=== PATIENT | female | born 2000 | race Two or more races ===

== ENCOUNTER 2022-01-20 20:31 | Emergency (ER) | payer MEDICARE, SELFPAY ==
[2022-01-20 20:59] VITALS: BP 128/66; PULSE 86; RESP 18; TEMP 36.4; O2SAT 99; BMI 28.7
[2022-01-20 21:09] LABS: Appearance Urine CLEAR; Color Urine YELLOW; Glucose Urine UA NEG (NEG); Leukocyte Esterase Urine NEG (NEG); Nitrite Urine NEG (NEG); Specific Gravity - Urine 1.015 (1.005-1.025); UACC Culture Trigger NO; Urine Blood 2+ (NEG); Urine Ketones NEG (NEG); Urine Protein TRACE MG/DL (NEG-TRACE)
[2022-01-20 21:10] LABS: UPreg QC Valid YES; Urine Pregnancy NEGATIVE (NEGATIVE)
[2022-01-20 21:16] LABS: WBC Urine 0 /HPF (0-4)
[2022-01-20 21:17] LABS: Amorphous Sediment Urine 1+ /LPF; Bacteria Urine TRACE /LPF; Squamous Epithelial Cell Urine 2+ /LPF
--- NOTE | 2022-01-20 22:02 | PC.NURSE ---
at bedside for primary eval.
--- NOTE | 2022-01-20 22:06 | ED.GENADULT ---
HPI - General Adult General Chief complaint: General Medical Stated complaint: stomach pain Time Seen by Provider: 01/20/22 22:01 Source: patient Mode of arrival: ambulatory Limitations: no limitations History of Present Illness HPI narrative: Patient comes to the emergency room complaining of mild abdominal cramping for couple of days. Patient states that she is to find out if she is or not. Earlier today, when patient was in triage, patient was called for blood work for the abdominal lab protocol. Patient declined. Patient denies nausea vomiting or diarrhea, no fever chills, no URI or UTI symptoms Related Data Allergies Allergy/AdvReac Type Severity Reaction Status Date / Time No Known Allergies Allergy Verified 01/20/22 21:01 Review of Systems Review of Systems: Constitutional : No Weight loss, No Fever, No Chills, No Night Sweats, No Fatigue, No Malaise ENT/Mouth : No Hearing loss, No Ear Pain, No Nasal Congestion, No Sinus Pain, No Hoarseness, No sore throat, No Rhinorrhea, No Swallowing Difficulty Eyes: No Eye Pain, No Swelling, No Redness, No Foreign Body, No Discharge, No Vision Changes Cardiovascular : No Chest Pain, No SOB, No Dyspnea on Exertion, No Orthopnea, No Edema, No Palpitations Respiratory : No Cough, No Sputum, No Wheezing, No Smoke Exposure, No Dyspnea Gastrointestinal : No Nausea, No Vomiting, No Diarrhea, No Constipation, mild abdominal cramping, no discomfort at this time, No Hematochezia, No Melena Genitourinary : no irregular bleeding, No Dysuria, No Urinary Frequency, No Hematuria, No Urinary Incontinence, No Urgency, No Flank Pain, No Urinary Flow Changes, No Hesitancy Musculoskeletal : No joint pain, No Myalgias, No Joint Swelling Skin : No Skin Lesions, No rash Neuro : No Weakness, No Numbness, No Paresthesias, No Loss of Consciousness, No Dizziness, No Headache Psych : No Anxiety/Panic, No Depression, No SI/HI/AH/VH, No Social Issues, Heme/Lymph: No Bruising, No Bleeding,No Lymphadenopathy Endocrine : No Polyuria, No Polydipsia, No Temperature Intolerance Physical Exam ED Vital Signs: Vital Signs - 24 hr 01/20/22 20:59 Temperature 97.6 F Pulse Rate 86 Respiratory Rate 18 Blood Pressure 128/66 Pulse Oximetry 99 BMI result Body Mass Index 28.7 Const Other: Appearance: Alert. Oriented X3. No acute distress. Well-appearing Eyes: Pupils equal, round and reactive to light. ENT: Pharynx normal. Neck: Normal inspection. Neck supple. No lymph nodes noted. No crepitus CVS: Normal heart rate and rhythm. Pulses normal. Normal S1 and S2 Respiratory: No respiratory distress. Breath sounds normal. No Wheezing. No rales Abdomen: Soft and nontender. No rigidity. No distention. No guarding wound Skin: Skin warm and dry. Normal skin color. Normal skin turgor. Extremities: No lower extremity edema. No Lacerations. No Rash Neuro: Oriented X 3. No motor deficit. No sensory deficit. Moving all extremities. No slurred speech. CN 2 through 12 grossly intact Psych: calm, cooperative, normal affect Course Course Course Narrative: I discussed with the patient that she has small amount of blood in the urine, patient is likely starting to menstruate now. test negative. As mentioned above, patient declined blood work. Medical Decision Making Lab Data Labs: Lab Results 01/20/22 01/20/22 Range/Units 20:55 20:55 Urine Color YELLOW Urine Appearance CLEAR Urine pH 8.0 (5.0-8.0) Ur Specific [place] 1.015 (1.005-1.025) Urine Protein TRACE (NEG-TRACE) MG/DL Urine Glucose (UA) NEG (NEG) MG/DL Urine Ketones NEG (NEG) MG/DL Urine Blood 2+ H (NEG) Urine Nitrite NEG (NEG) Ur Leukocyte Esterase NEG (NEG) Urine RBC 10-14 H (0) /HPF Urine WBC 0 (0-4) /HPF Ur Squamous Epith Cells 2+ /LPF Amorphous Sediment 1+ /LPF Urine Bacteria TRACE /LPF Urine Test NEGATIVE (NEGATIVE) Discharge Plan Discharge Clinical Impression: Abdominal cramping Patient Disposition: Home, Self-Care Instructions: Abdominal Pain (ED) Additional Instructions: Please follow-up with your primary care physician tomorrow. If you have any worsening or new symptoms, please return to the emergency room or call 911
--- NOTE | 2022-01-20 22:13 | PC.NURSE ---
Pt requesting blood work to r/o . agreeable. Pt and asking how long for results, pt and unable to wait 1-2 hours for results. Pt and requesting DC paperwork.
== END 2022-01-20 22:15 | disposition home or self-care (01) ==
LOC: HO.ED 22:13
PROVIDERS: Emergency Provider Emergency Medicine
DX: R10.9 Unspecified abdominal pain (principal)
CPT/HCPCS: 81001; 81025; 99282; 99283

== ENCOUNTER 2022-01-27 16:36 | Emergency (ER) | payer MEDICARE, SELFPAY ==
--- NOTE | ~2022-01-27 | CT_ITS ---
EXAMINATION: CT abdomen pelvis w con CLINICAL INFORMATION: Reason for Exam abd pain COMPARISON: No prior CT available for comparison. TECHNIQUE: Multidetector volumetric imaging was performed from the superior aspect of the liver through the pubic symphysis 85 mL of Omnipaque 350 injected. Sagittal and coronal reformatted images were obtained on the technologist's workstation. This CT examination was performed using dose optimization techniques as appropriate, variously including the following: *Automated exposure control *Adjustment of mA and/or kV according to patient size (this includes techniques or standardized protocols for targeted exams where dose is matched to indication/reason for exam; i.e. extremities or head) *Use of iterative reconstruction technique DLP: 1671 mGy-cm FINDINGS: LOWER THORAX: Included lung bases are clear. HEPATOBILIARY: No focal hepatic lesions. No biliary ductal dilatation. GALLBLADDER: Gallbladder unremarkable. SPLEEN: Spleen is normal in size. PANCREAS: No focal mass or ductal dilatation. STOMACH AND GASTROINTESTINAL TRACT: Stomach is grossly unremarkable. There is no bowel distention or thickening. Appendix not directly visualized probably obscured by crowding of bowel loops, no CT evidence of inflammation or dilated of blind loop around the cecum to suggest appendicitis. ADRENALS: No adrenal nodules. KIDNEYS/URETERS: No hydronephrosis, stones or solid mass lesions. URINARY BLADDER: Partially decompressed. PELVIC VISCERA: Unremarkable PERITONEUM: No free air or fluid. LYMPH NODES: No lymphadenopathy. VASCULAR:Abdominal aorta normal in size, no aneurysm found. BONES, ABDOMINAL WALL AND SOFT TISSUES: Age-appropriate changes of the spine and skeletal system, no destructive osteolytic or osteosclerotic bone lesion found CT/CT abdomen pelvis w con IMPRESSION: *No CT evidence of acute intra-abdominal process to explain patient's pain symptoms. No CT evidence of appendicitis, no kidney stone or hydronephrosis. No free air or fluid.
[2022-01-27 16:40] VITALS: BP 140/73; PULSE 92; RESP 19; TEMP 36.6; O2SAT 98; BMI 28.1
--- NOTE | 2022-01-27 17:09 | ED.ABDPAIN ---
HPI - Abdominal Pain General Chief Complaint: Abdominal Pain Stated Complaint: severe abd pain Time Seen by Provider: 01/27/22 17:06 History of Present Illness HPI narrative: Patient is a 21-year-old female presents today with having lower abdominal pain about 2 weeks. Denies any fever chills. No pain on urination. Patient had not had a Menstruation for 2 months. No coughing or congestion or upper respiratory symptoms. No diaphoresis. Complaining the pain is constant. It is not associated with nausea vomiting or diarrhea. There is nose discharge from the vaginal area. Patient also has pain in the lower back. Patient denies any trauma. Denies any fever chills. Immunized for COVID. No systemic complaints. Related Data Allergies Allergy/AdvReac Type Severity Reaction Status Date / Time No Known Allergies Allergy Verified 01/20/22 21:01 Review of Systems Review of Systems No fever no chills no chest pain or shortness of breath no nausea no vomiting Yes all other systems are reviewed and are negative [facility] Past Medical History Attestation statement: The following information was validated with the patient. Social History Social History Patient Tobacco Use Status: Never used Tobacco Use of substances other than those prescribed or required for medical reasons: No Advance Directives: No Advance Directives Information Provided: No Physical Exam ED Vital Signs: Vital Signs - 24 hr 01/27/22 16:40 01/27/22 18:31 Temperature 98 F 98.2 F Pulse Rate 92 75 Respiratory Rate 19 18 Blood Pressure 140/73 H 115/96 H Pulse Oximetry 98 98 BMI result Body Mass Index 28.1 Appearance: Alert. Oriented X3. No acute distress. Eyes: Pupils equal, round and reactive to light. ENT: Pharynx normal. Neck: Normal inspection. Neck supple. No lymph nodes noted. No crepitus CVS: Normal heart rate and rhythm. Pulses normal. Normal S1 and S2 Respiratory: No respiratory distress. Breath sounds normal. No Wheezing. No rales Abdomen: Soft and nontender. No rigidity. No distention. good BS x4 Skin: Skin warm and dry. Normal skin color. Normal skin turgor. Extremities: No lower extremity edema. Neurovascular intact to all extremities. No Lacerations. No Rash Neuro: Oriented X 3. No motor deficit. No sensory deficit. Moving all extermities. No slurred speech MDM - Abdominal Pain MDM Narrative Medical decision making narrative: White count is normal. Patient's electrolytes unremarkable. test is negative no evidence for ectopic. CT scan of the abdomen pelvis showed no evidence of appendicitis. Patient has 1 sexual partner. No vaginal discharge. GC chlamydia was sent. Will have patient follow-up on an outpatient basis. In stable condition. Will discharge home. Urine showed no signs of infection Medical Records Attestation: I reviewed the patient's medical records. Lab Data Attestation: I reviewed the patient's lab results. Result diagrams: 01/27/22 17:34 01/27/22 17:34 Labs: Lab Results 01/27/22 01/27/22 01/27/22 Range/Units 17:34 17:34 17:34 WBC 8.8 (4.8-10.8) X10*3/uL RBC 5.22 (4.20-5.50) X10*6/uL Hgb 13.6 (12.0-16.0) g/dl Hct 42.0 (37.0-47.0) % MCV 80.5 (80.0-98.0) fL MCH 26.1 L (27.0-33.0) pg MCHC 32.4 (31.0-35.0) g/dl RDW 13.6 (11.0-16.0) % Plt Count 367 (160-400) X10*3/uL MPV 9.5 (9.4-12.3) fL Immature Gran % (Auto) 0.3 (0.0-0.4) % Neut % (Auto) 62.7 (45-73) % Lymph % (Auto) 27.8 (20-40) % [place] % (Auto) 6.8 (2-11) % Eos % (Auto) 1.5 (0-4) % Baso % (Auto) 0.9 (0-2) % Lymph # (Auto) 2.4 (1.2-4.9) X10*3/uL [place] # (Auto) 0.6 (0.1-1.2) X10*3/uL Eos # (Auto) 0.1 (0.0-0.4) X10*3/uL Baso # (Auto) 0.1 (0.0-0.2) X10*3/uL Abs Immat Gran (auto) 0.03 (0.00-0.03) X10*3/uL Absolute Neuts (auto) 5.5 (2.0-8.3) x10*3/uL Absolute Nucleated RBC 0.000 (0.0-0.012) X10*3/uL Nucleated RBC % (auto) 0.0 (0.0-0.2) /100WBC Sodium 138 (135-145) mmol/L Potassium 4.3 (3.3-5.1) mmol/L Chloride 105 (96-108) mmol/L Carbon Dioxide 25 (22-29) mmol/L Anion Gap 12 (12-20) BUN 11 (9-16) mg/dL Creatinine 0.76 (0.5-1.4) mg/dL Estim Creat Clear Calc 131.8 Estimated GFR > 60 Random Glucose 90 (60-115) mg/dL Calcium 9.4 (8.4-10.2) mg/dL Total Bilirubin < 0.2 (0.0-1.0) mg/dL Direct Bilirubin < 0.2 (0.0-0.5) mg/dL AST 14 (5-31) U/L ALT 11 (0-31) U/L Alkaline Phosphatase 78 (39-117) U/L Total Protein 7.6 (6.5-8.0) g/dL Albumin 4.0 (3.5-5.0) g/dL Lipase 24 (8-78) U/L Beta HCG, Quant < 2 mIU/mL Urine Color YELLOW Urine Appearance CLEAR Urine pH 7.5 (5.0-8.0) Ur Specific [place] 1.010 (1.005-1.025) Urine Protein NEG (NEG-TRACE) MG/DL Urine Glucose (UA) NEG (NEG) MG/DL Urine Ketones NEG (NEG) MG/DL Urine Blood NEG (NEG) Urine Nitrite NEG (NEG) Ur Leukocyte Esterase 1+ H (NEG) Urine RBC 0-2 (0) /HPF Urine WBC 0-2 (0-4) /HPF Ur Squamous Epith Cells 1+ /LPF Urine Bacteria TRACE /LPF Discharge Plan Discharge Clinical Impression: Abdominal pain Patient Disposition: Home, Self-Care Instructions: Abdominal Pain (ED) Referrals: [facility] [Physician] - Print Language: Amharic
[2022-01-27 17:40] LABS: MANUAL DIFF FLAG NO
[2022-01-27 17:48] LABS: Basophils Absolute Auto 0.1 X10*3/uL (0.0-0.2); Basophils Percent Auto 0.9 % (0-2); Eosinophils Absolute Auto 0.1 X10*3/uL (0.0-0.4); Eosinophils Percent Auto 1.5 % (0-4); Hemoglobin 13.6 g/dl (12.0-16.0); Imm Gran Abs Auto 0.03 X10*3/uL (0.00-0.03); Imm Gran Pct Auto 0.3 % (0.0-0.4); Lymphocytes Absolute Auto 2.4 X10*3/uL (1.2-4.9); Lymphocytes Percent Auto 27.8 % (20-40); Mean Corpuscular HGB Conc 32.4 g/dl (31.0-35.0); Mean Corpuscular Hemoglobin 26.1 pg (27.0-33.0); Mean Corpuscular Volume 80.5 fL (80.0-98.0); Mean Platelet Volume 9.5 fL (9.4-12.3); Monocytes Absolute Auto 0.6 X10*3/uL (0.1-1.2); Monocytes Percent Auto 6.8 % (2-11); Neutrophils Absolute Auto 5.5 x10*3/uL (2.0-8.3); Neutrophils Percent Auto 62.7 % (45-73); Platelet Count 367 X10*3/uL (160-400); Red Blood Count 5.22 X10*6/uL (4.20-5.50); Red Cell Distribution Width 13.6 % (11.0-16.0); White Blood Count 8.8 X10*3/uL (4.8-10.8)
[2022-01-27 17:54] LABS: Appearance Urine CLEAR; Color Urine YELLOW; Glucose Urine UA NEG (NEG); Leukocyte Esterase Urine 1+ (NEG); Nitrite Urine NEG (NEG); PH 7.5 (5.0-8.0); UACC Culture Trigger YES; Urine Blood NEG (NEG); Urine Ketones NEG (NEG); Urine Protein NEG (NEG-TRACE)
[2022-01-27 18:12] LABS: Bacteria Urine TRACE /LPF; RBC Urine 0-2 /HPF (0); Squamous Epithelial Cell Urine 1+ /LPF; UACC CULT YES; WBC Urine 0-2 /HPF (0-4)
[2022-01-27 18:14] LABS: HCG Quantitative < 2 mIU/mL
[2022-01-27 18:17] LABS: Alanine Aminotransferase 11 U/L (0-31); Alkaline Phosphatase 78 U/L (39-117); Anion Gap 12 (12-20); Aspartate Amino Transferase 14 U/L (5-31); Bilirubin Direct < 0.2 mg/dL (0.0-0.5); Bilirubin Total < 0.2 mg/dL (0.0-1.0); Blood Urea Nitrogen 11 mg/dL (9-16); Calcium 9.4 mg/dL (8.4-10.2); Carbon Dioxide 25 mmol/L (22-29); Chloride 105 mmol/L (96-108); Creatinine Clr Calc Pharmacy 131.8; Estimated Glomerular Filt Rate > 60; Glucose Random 90 mg/dL (60-115); Lipase 24 U/L (8-78); Potassium 4.3 mmol/L (3.3-5.1); Sodium 138 mmol/L (135-145); Total Protein 7.6 g/dL (6.5-8.0)
[2022-01-27 18:31] VITALS: BP 115/96; PULSE 75; RESP 18; TEMP 36.8; O2SAT 98
[2022-01-27] MEDS: iohexoL 350 MG/ML 100 ML INFUS..BTL IV (19:29)
[2022-01-28 05:34] LABS: CT PCR NOT DETECTED (Not Detect.); NG PCR NOT DETECTED (Not Detect.)
== END 2022-01-27 21:13 | disposition home or self-care (01) ==
PROVIDERS: Emergency Provider Emergency Medicine Emergency Medical Services
DX: N39.0 Urinary tract infection, site not specified (principal); R10.30 Lower abdominal pain, unspecified; Z79.899 Other long term (current) drug therapy
CPT/HCPCS: 36415; 74177; 80048; 80076; 81001; 83690; 84702; 85025; 87086; 87147; 87491; 87591; 99284; Q9967

== ENCOUNTER 2022-06-10 15:30 | Emergency (ER) | payer MEDICARE, SELFPAY ==
[2022-06-10 15:59] VITALS: BP 119/64; PULSE 98; RESP 18; TEMP 37.2; O2SAT 100; BMI 32.3
[2022-06-10 16:36] LABS: COVID-19 Test Negative (Negative); IDNOW Serial# 55D5AD1C
[2022-06-10 16:37] LABS: Strep A Nucleic Acid Negative (Negative)
--- NOTE | 2022-06-10 18:18 | ED.URI ---
HPI - URI/Sore Throat General Chief Complaint: Upper Respiratory Symptoms Stated Complaint: Fever, sore throat, coughing Time Seen by Provider: 06/10/22 18:07 Source: patient and family Mode of arrival: ambulatory Limitations: no limitations History of Present Illness HPI Narrative: 21-year-old female who is 12.5 weeks presents to the ER for evaluation of dry cough, sore throat, body aches and subjective fevers that started yesterday. Her 2-1/2-year-old son is here with similar complaints. They were seen at [facility] yesterday for the same, unclear what tests were performed there. The patient is not sure which medication she can take because she is . She denies any lower abdominal cramping or vaginal bleeding. She reports feeling hot and cold the last couple of days but has not taken her temperature at home. She has a dry cough that is worse at night. She also has a sore throat, worse with swallowing. She has been able to eat and drink normally. She denies any nausea or vomiting. No abdominal pain, chest pain, shortness of breath. MD elicited complaint: fever, cough, sore throat and nasal congestion Onset (ago): day(s) (2) Consistency: constant Severity: moderate Description of mucous: clear and watery Able to tolerate fluids by mouth: Yes Exacerbating factors: supine positioning Relieving factors: nothing Context: sick contacts Associated symptoms: fever, chills, myalgias, headache, rhinorrhea, nasal congestion, sore throat and cough Treatments prior to arrival: none Related Data Previous Rx's Medication Instructions Recorded cefuroxime axetil 250 mg tablet 250 mg PO BID 7 days #14 tabs 01/31/22 acetaminophen 500 mg tablet 1,000 mg PO Q6H PRN fever or pain 06/10/22 #30 tabs Allergies Allergy/AdvReac Type Severity Reaction Status Date / Time No Known Allergies Allergy Verified 06/10/22 15:49 Review of Systems Review of Systems: Constitutional: + Fever, + Chills ENT/Mouth: + sore throat, + Rhinorrhea, + Swallowing Difficulty Eyes: No Eye Pain, No Swelling, No Redness Cardiovascular: No Chest Pain, No SOB, No Orthopnea, No Edema Respiratory: + Cough, No Sputum, No Wheezing, No dyspnea Gastrointestinal: No Nausea, No Vomiting, No Diarrhea, No abdominal Pain Genitourinary: No Dysuria, No Urinary Frequency, No Hematuria, No vaginal bleeding Musculoskeletal: No joint pain, + Myalgias Skin: No Skin Lesions, No rash Neuro: No Weakness, No Numbness, No Dizziness, + Headache Psych: + Anxiety/Panic, No Depression Heme/Lymph: No Bruising, No Lymphadenopathy Endocrine: No Polyuria, No Polydipsia PMFSH Social History Social History Patient Tobacco Use Status: Never used Tobacco Advance Directives: No Advance Directives Information Provided: Yes Physical Exam Vital Signs: Vital Signs: Last Vital Signs Temp 98.9 F 06/10/22 15:59 Pulse 98 06/10/22 15:59 Resp 18 06/10/22 15:59 BP 119/64 06/10/22 15:59 Pulse Ox 100 06/10/22 15:59 O2 Del Method 06/10/22 15:59 BMI result Body Mass Index 32.3 Appearance: Alert. Oriented X3. No acute distress. Eyes: Pupils equal, round and reactive to light. ENT: Pharynx normal. No tonsillar swelling or exudate. Uvula midline. Normal voice Neck: Normal inspection. Neck supple. Normal CVS: Normal heart rate and rhythm. Pulses normal. Respiratory: No respiratory distress. Breath sounds normal. Abdomen: Soft and nontender. +BS x4. Pelvic deferred Skin: Skin warm and dry. Normal skin color. Normal skin turgor. No rashes. Extremities: No lower extremity edema. Neuro: Oriented X 3. Nonfocal Course Course Course Narrative: 21-year-old female who is 12 and half weeks presents to the ER for evaluation of URI symptoms that started yesterday including sore throat, dry cough, subjective fevers. She is tolerating normal p.o.. On arrival to the ER her vital signs within normal limits. Her physical exam is unremarkable. She is negative for COVID and strep throat. Her sons viral PCR was negative. Symptoms are most likely due to viral URI. She is stable for discharge home with p.r.n. Tylenol. [id number] Chloraseptic spray and septic all lozenges or safe for use in . This was discussed with the patient and her . She is stable for discharge home with outpatient follow-up with her PCP and OBGYN as needed. Return precautions were discussed. Stable for DC. MDM - URI/Sore Throat Lab Data Labs: Lab Results 06/10/22 06/10/22 Range/Units 16:09 16:09 COVID-19 (MELISA) Negative (Negative) COVID-19 Clin Com See Note S. pyogenes GrpA WILLI Negative (Negative) Discharge Plan Discharge Clinical Impression: Upper respiratory infection Patient Disposition: Home, Self-Care Instructions: Viral Syndrome (ED) Additional Instructions: You are negative for COVID-19 and strep throat. Recommend taking the prescribed Tylenol every 6 hours as directed. Recommend gargling with warm salt water several times per day. Recommend [id number] Chloraseptic spray or Cepacol lozenges for your sore throat. Rest and drink plenty of fluids. Follow up with your Typesetter Apprentice. If you develop new or worsening symptoms call 911 or come back to the ER for further evaluation. Prescriptions: New acetaminophen 500 mg tablet 1,000 mg PO Q6H PRN (Reason: fever or pain) Qty: 30 0RF No Action cefuroxime axetil 250 mg tablet 250 mg PO BID 7 Days Qty: 14 0RF Interventions: ED Discharge Assessment Last Done: 06/10/22 18:38 Discharge Date/Time: 06/10/22 18:39 Print Language: Trinidadian
== END 2022-06-10 18:39 | disposition home or self-care (01) ==
PROVIDERS: Emergency Provider Internal Medicine
DX: O98.511 Other viral diseases complicating pregnancy, first trimester (principal); J06.9 Acute upper respiratory infection, unspecified; Z20.822 Contact with and (suspected) exposure to COVID-19; J02.9 Acute pharyngitis, unspecified; Z3A.12 12 weeks gestation of pregnancy
CPT/HCPCS: 87635; 87651; 99282; 99283